=== PATIENT | female | born 1940 | race Caucasian/White ===

== ENCOUNTER → 2021-05-28 14:13 | Outpatient (CLI) | payer MEDICARE, OTHER, SELFPAY ==
--- NOTE | 2021-05-28 | DI.ECHO.S_ITS ---
[place] [facility]---------+ [facility] +---------+ : : [id number] : : : : [id number] : : : : Phone: [phone]+ Echocardiogram Report + + :Name: MILAN ROSENBERG Study Date: 05/28/2021 Height: 65 in : :[facility] ReadingLocation: Weight: 175 lb : : Gender: Female BSA: 1.9 m2 : :: 1940 Age: 81 yrs BP: 167/84 mmHg: :Reason For Study: Edema : :Ordering Physician: Jay : :Reuben Performed By: Rosenda Canchola : :Referring: JAY LIU : + + Interpretation Summary The ejection fraction is estimated to be 60-65%. Grade II diastolic dysfunciton. Right ventricular systolic function is mildly reduced. The left atrium is mildly dilated. No significant valvular disease. Procedure: A two-dimensional transthoracic echocardiogram with color flow and Doppler was performed. The study quality was technically adequate. There is no prior echocardiogram noted for this patient. The patient was in sinus rhythm with heart rates between 68-74 bpm during the exam. Left Ventricle: The left ventricle is normal in size. There is mild concentric left ventricular hypertrophy. The ejection fraction is estimated to be 60-65%. Grade II diastolic dysfunciton. Right Ventricle: The right ventricle is normal size. Right ventricular systolic function is mildly reduced. Atria: The left atrium is mildly dilated. Right atrial size is normal. There is no Doppler evidence for an interatrial shunt. Mitral Valve: There is mild mitral annular calcification. The mitral valve is normal in structure and function. There is no mitral regurgitation noted. Aortic Valve: The aortic valve is trileaflet. The aortic valve opens well. The aortic valve is slightly calcified. There is no aortic valve stenosis. No aortic regurgitation is present. Tricuspid Valve: The tricuspid valve is normal in structure and function. There is trace tricuspid regurgitation. Pulmonic Valve: The pulmonic valve is not well seen, but is grossly normal. There is no pulmonic valvular regurgitation. Great Vessels: The aortic root is normal size. The dimensions of the ascending aorta are normal. The IVC is of normal diameter and collapses greater than 50% with a sniff. This suggests a low right atrial pressure of 3 mm Hg. Pericardium/ Pleura There is no pericardial effusion. There is no pleural effusion. MMode/2D Measurements & Calculations LVIDd: 4.1 cm LVOT diam: 2.0 cm LVIDs: 2.7 cm Ao root diam: 2.8 cm FS: 35.4 % asc Aorta Diam: 3.1 cm IVSd: 1.0 cm Ao Arch Diam (Prox Trans): 2.9 cm LVPWd: 1.1 cm LV zhao. diameter/BSA (cm/m^2): 2.2 LV sys. diameter/BSA (cm/m^2): 1.4 LA A2 area: 25.9 cm2 RA long axis: 4.8 cm LA A4 area: 18.7 cm2 RA area: 14.4 cm2 LA length (vol): 5.7 cm RA vol: 37.0 ml LA vol: 71.8 ml RA : 19.8 ml/m2 LA vol index: 38.4 ml/m2 IVC diam: 1.3 cm RVD1 (basal): 3.6 cm RVD2 (mid): 3.2 cm TAPSE: 1.5 cm Doppler Measurements & Calculations Ao V2 max: 132.5 cm/sec LVOT Max [place]: 94.0 cm/sec Ao V2 mean: 93.4 cm/sec LV V1 max P.5 mmHg Ao max P.0 mmHg LV V1 VTI: 22.6 cm Ao mean P.0 mmHg DELVIN(I,D): 2.6 cm2 Ao V2 VTI: 27.0 cm DELVIN(V,D): 2.2 cm2 sev ratio: 0.84 DELVIN indexed to BSA (cm^2/m^2): 1.4 MV E max [place]: 79.6 cm/sec PA V2 max: 77.0 cm/sec MV A max [place]: 102.4 cm/sec PA V2 mean: 53.7 cm/sec MV E/A: 0.78 PA mean P.3 mmHg Med Peak E' [place]: 4.3 cm/sec PA pr(Accel): 37.9 mmHg E/E' med: 18.4 Lat Peak E' [place]: 6.9 cm/sec E/E' lat: 11.6 E/e' average: 15.0 MV dec time: 0.28 sec [facility] 71.4 ml Reading Physician:PHAN
== END ==
PROVIDERS: PCP Physician Assistant Medical; Referring Provider Physician Assistant Medical; Visit Provider Physician Assistant Medical
DX: R60.9 Edema, unspecified (principal)
CPT/HCPCS: 93306